=== PATIENT | male | born 1985 | race African-American/Black ===

== ENCOUNTER 2020-04-07 10:07 | Emergency (ER) | payer OTHER ==
[2020-04-07] MEDS ORDERED: DEXAMETHASONE 10 MG/ML VIAL PO STA (10:41)
[2020-04-07] MEDS ORDERED: CHERRY SYRUP 10 ML UDC PO ONE (10:41)
--- NOTE | 2020-04-07 10:43 | ED Physician Documentation ---
PD HPI HEENT - Stated complaint Stated Complaint: COUGH, ITCHY THROAT - EXPOSURE TO STREP - Chief complaint Chief Complaint: Heent - History obtained from History obtained from: Patient - History of Present Illness Timing - onset: How many weeks ago (1) Timing - duration: Weeks (1) Timing - details: Gradual onset, Still present Location: Throat Improves: Medication Worsens: Swalllowing Associated symptoms: Congestion, Swollen nodes, Headache, Cough Similar symptoms before: Has not had sx before Recently seen: Not recently seen - Additional information Additional information: Previously well 34-year-old male has developed a scratchy sore throat about 1 week ago and this is slightly improved but he has a mate that is with him here that has tested positive for strep yesterday and he is in here today wanting to be tested. He is uncertain whether he passed it on to her or she passed on to him. He does continue to have an itchy sore throat. He has not had fever. He does not ever remember having strep previously. Review of Systems Constitutional: denies: Fever Eyes: denies: Decreased vision Ears: denies: Ear pain Nose: reports: Congestion. denies: Rhinorrhea / runny nose Throat: reports: Sore throat Cardiac: denies: Chest pain / pressure, Palpitations Respiratory: reports: Cough. denies: Dyspnea GI: denies: Abdominal Pain, Nausea, Vomiting : denies: Dysuria, Frequency PD PAST MEDICAL HISTORY - Present Medications Home Medications: Ambulatory Orders Medication Instructions Recorded Confirmed Amoxicillin 875 mg PO BID #20 tablet 04/07/20 - Allergies Allergies/Adverse Reactions: Allergies Allergy/AdvReac Type Severity Reaction Status Date / Time No Known Drug Allergies Allergy Verified 04/07/20 10:48 PD ED PE NORMAL - Vitals Vital signs reviewed: Yes (Normal) - General General: No acute distress, Well developed/nourished - HEENT HEENT: Atraumatic, PERRL, EOMI, Ears normal, Moist mucous membranes, Other (The tonsils are 1+ cryptic and exudative with some erythema to the pharynx in general) - Neck Neck: Supple, no meningeal sign, No bony TTP - Cardiac Cardiac: RRR, No murmur - Respiratory Respiratory: No respiratory distress, Clear bilaterally - Abdomen Abdomen: Soft, Non tender - Derm Derm: Normal color, Warm and dry, No rash - Extremities Extremities: No deformity, No edema - Neuro Neuro: Alert and oriented X 3, 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, No motor deficit, No sensory deficit, Normal speech Eye Opening: Spontaneous Motor: Obeys Commands Verbal: Oriented GCS Score: 15 - Psych Psych: Normal mood, Normal affect Results - Vitals Vitals: Vital Signs - 24 hr 04/07/20 04/07/20 10:18 11:17 Temperature 36.6 C 37.1 C Heart Rate 88 82 Respiratory 18 19 Rate Blood Pressure 122/68 126/73 O2 Saturation 100 98 Oxygen O2 Source Room air - Labs Labs: Laboratory Tests 04/07/20 10:30 Group A Strep Rapid Negative Departure - Departure Disposition: 01 Home, Self Care Clinical Impression: Tonsillopharyngitis Condition: Stable Instructions: ED Tonsillitis Follow-Up: [facility] [Provider Group] Prescriptions: Amoxicillin 875 mg PO BID #20 tablet Forms: Activity restrictions Discharge Date/Time: 04/07/20 11:20
[2020-04-07 10:46] LABS: RAPID STREP SCREEN Negative (Negative)
[2020-04-07 11:17] VITALS: BP 126/73
== END 2020-04-07 11:20 | disposition home or self-care (01) ==
LOC: ED 10:07
DX: J03.90 Acute tonsillitis, unspecified (principal)
CPT/HCPCS: 87070; 87430; 99283; 99284; A9270